=== PATIENT | female | born 1995 | race Caucasian/White ===

== ENCOUNTER 2017-02-20 19:52 | Emergency (ER) | payer SELFPAY ==
[~2017-02-20] VITALS: Ht 157.5 cm; Wt 55.0 kg
[~2017-02-20 19:52] MED LIST: IBUPROFEN800 M1 PO; NORCO 5-325 TA1 EACH PO
[2017-02-20 20:35] LABS: URINE BILIRUBIN NEGATIVE (NEG); URINE BLOOD NEGATIVE (NEG); URINE GLUCOSE (UA) NEGATIVE (NEG); URINE KETONE NEGATIVE (NEG); URINE LEUKOCYTE ESTERASE NEGATIVE (NEG); URINE NITRITE NEGATIVE (NEG); URINE PROTEIN SMALL (NEG); URINE SPECIFIC GRAVITY 1.015 (1.003-1.030)
[2017-02-20 20:42] LABS: URINE APPEARANCE HAZY; URINE COLOR YELLOW
[2017-02-20 20:46] LABS: URINE AMORPHOUS 3+; URINE EPITHELIAL CELLS 0-3 /[HPF] (0-10); URINE RBC 0 /[HPF] (0-5); URINE WBC RARE /[HPF] (0-5)
[2017-02-20] MEDS ORDERED: TYLENOL EXTRA500 M1 PO (20:58)
[2017-02-20] MEDS ORDERED: NORCO 5/3251 TAB PO (23:59)
== END 2017-02-21 00:46 ==
LOC: EDMED 19:52
PROVIDERS: Emergency Medicine
PROC: BW4GZZZ Ultrasonography of Pelvic Region (ICD-10-PCS; principal; 2017-02-20)
DX: N83.202 Unspecified ovarian cyst, left side (principal); F17.200 Nicotine dependence, unspecified, uncomplicated
CPT/HCPCS: J0696